=== PATIENT | male | born 2000 | race Caucasian/White ===

== ENCOUNTER 2018-02-17 12:51 | Emergency (ER) | payer OTHER, MEDICAID ==
[~2018-02-17] VITALS: Ht 170.2 cm; Wt 70.3 kg
[2018-02-17] MEDS ORDERED: Voltaren100 GM TOP (13:37)
[2018-02-17] MEDS ORDERED: IBUP800 PO (13:37)
== END 2018-02-17 14:05 | disposition home or self-care (01) ==
LOC: ER 12:51
DX: T14.8XXA Other injury of unspecified body region, initial encounter (principal); M79.602 Pain in left arm; Z87.891 Personal history of nicotine dependence; V49.9XXA Car occupant (driver) (passenger) injured in unspecified traffic accident, initial encounter
CPT/HCPCS: 73060; 96372; 99283-25; J1885